=== PATIENT | male | born 1985 | race Two or more races ===

== ENCOUNTER 2017-07-05 20:05 | Emergency (ER) | payer OTHER ==
[2017-07-05 21:35] LABS: ABSOLUTE BASOPHILS # (AUTO) 0.1 10^3/uL (0.0-0.2); ABSOLUTE LYMPHOCYTES (AUTO) 1.7 10^3/uL (0.5-4.7); ABSOLUTE MONOCYTES (AUTO) 1.4 10^3/uL (0.1-1.4); ABSOLUTE NEUT (AUTO) 11.9 10^3/uL (1.7-8.2); BASOPHILS % (AUTO) 0.6 % (0-2); HEMATOCRIT 44.6 % (37.9-51.0); HEMOGLOBIN 15.3 g/dL (13.5-17.0); HGB HCT DIFFERENCE 1.3; LYMPHOCYTES % (AUTO) 11.2 % (13-45); MEAN CORPUSCULAR HEMOGLOBIN 30.5 pg (27.0-33.4); MEAN CORPUSCULAR HGB CONC 34.4 g/dL (32.0-36.0); MEAN CORPUSCULAR VOLUME 89 fl (80-97); MONOCYTES % (AUTO) 9.1 % (3-13); RED BLOOD COUNT 5.04 10^6/uL (4.35-5.55); SEGMENTED NEUTROPHILS % (AUTO) 79.1 % (42-78); WHITE BLOOD COUNT 15.1 10^3/uL (4.0-10.5)
--- NOTE | 2017-07-05 21:49 | RADIOLOGY REPORT (SQ) ---
EXAM DESCRIPTION: CHEST PA/LAT COMPLETED DATE/TIME: 07/05/2017 9:41 pm REASON FOR STUDY: SOB COMPARISON: None. TECHNIQUE: Frontal and lateral radiographic views of the chest acquired. NUMBER OF VIEWS: Two view. LIMITATIONS: None. FINDINGS: LUNGS AND PLEURA: No opacities, masses or pneumothorax. No pleural effusion. MEDIASTINUM AND HILAR STRUCTURES: No masses or contour abnormalities. HEART AND VASCULAR STRUCTURES: Heart normal size. No evidence for failure. BONES: No acute findings. HARDWARE: None in the chest. OTHER: No other significant finding. IMPRESSION: NO SIGNIFICANT RADIOGRAPHIC FINDING IN THE CHEST. TECHNICAL DOCUMENTATION: JOB ID: [id number] [facility] [employer]- All Rights Reserved
[2017-07-05 21:51] LABS: ALANINE AMINOTRANSFERASE 45 U/L (21-72); ALKALINE PHOSPHATASE 78 U/L (38-126); ANION GAP 16 (5-19); ASPARTATE AMINO TRANSFERASE 31 U/L (17-59); BILIRUBIN,DIRECT 0.3 mg/dL (0.0-0.4); BILIRUBIN,TOTAL 0.6 mg/dL (0.2-1.3); BLOOD UREA NITROGEN 22 mg/dL (7-20); CALCIUM 11.2 mg/dL (8.4-10.2); CARBON DIOXIDE 27 mmol/L (22-30); CHLORIDE 102 mmol/L (98-107); CREATININE RESULT 1.47 mg/dL (0.52-1.25); GLUCOSE 100 mg/dL (75-110); POTASSIUM 4.4 mmol/L (3.6-5.0); SODIUM 144.9 mmol/L (137-145); TOTAL PROTEIN 8.2 g/dL (6.3-8.2)
[2017-07-05 22:34] LABS: ADD ON TESTING BLD IN LAB ACKNOWLEDGE
[2017-07-05 22:42] LABS: CREATINE KINASE 294 U/L (55-170)
[2017-07-05] MEDS ORDERED: KETOROLAC TROMETHAMINE INJ/PF 30 MG/1 ML SDV IV ONE (22:47)
[2017-07-05] MEDS ORDERED: NORMAL SALINE 1000 ML 1,000 ML IV ONE (22:47)
[2017-07-05] MEDS ORDERED: DIPHENHYDRAMINE HCL 50 MG/ML VIAL IV ONE (22:47)
[2017-07-05] MEDS ORDERED: PROCHLORPERAZINE EDISYLATE INJ 10 MG/2 ML VIAL IM ONE (22:48)
--- NOTE | 2017-07-05 22:48 | ER Document Report ---
ED Respiratory Problem - General Mode of Arrival: Ambulatory Information source: Patient TRAVEL OUTSIDE OF THE [place] IN LAST 30 DAYS: No <SHER DIOR - Last Filed: 07/05/17 22:58> <JUNIOR KEE - Last Filed: 07/06/17 02:54> - General Chief Complaint: Shortness Of Breath Stated Complaint: SHORTNESS OF BREATH Time Seen by Provider: 07/05/17 22:15 Notes: Patient is a 31 year old male that presents to the emergency department today with complaints of shortness of breath. Patient states two days ago he began having a migraine headache. Patient has a history of migraine headaches which he states he gets "rarely". Patient states this migraine was particularly bad and it lingered yesterday so he stayed in bed all day. Patient states today his headache dissipated so he decided to play in his soccer games this afternoon. Patient states he was fine while playing soccer and he had no headache. Patient states on his way home he began experiencing "tunnel vision" with associated shortness of breath. Patient states he stopped at a gas station and called 911. Patient states that EMS "checked him out" and he vomited shortly after their arrival which made him feel much better so he elected to refuse transport at that time. Patient states his shortness of breath began again this evening. Patient states he has felt generally weak with this shortness of breath but he no longer has a headache. Patient denies any vision changes. (SHER DIOR) Past Medical History - General Information source: Patient - Social History Smoking Status: Never Smoker Cigarette use (# per day): No Frequency of alcohol use: None Drug Abuse: None Lives with: Family Family History: Reviewed & Not Pertinent Patient has suicidal ideation: No Patient has homicidal ideation: No Neurological Medical History: Reports: Hx Migraine Past Surgical History: Reports: Hx Appendectomy, Hx Herniorrhaphy <SHER DIOR - Last Filed: 07/05/17 22:58> Review of Systems - Review of Systems Constitutional: See HPI, Weakness EENT: denies: Blurred vision, Double vision Cardiovascular: No symptoms reported Respiratory: See HPI, Short of breath Gastrointestinal: No symptoms reported Genitourinary: No symptoms reported Male Genitourinary: No symptoms reported Musculoskeletal: No symptoms reported Skin: No symptoms reported Hematologic/Lymphatic: No symptoms reported Neurological/Psychological: denies: Headaches -: Yes All other systems reviewed and negative <SHER DIOR - Last Filed: 07/05/17 22:58> Physical Exam <SHER DIOR - Last Filed: 07/05/17 22:58> <JUNIOR KEE - Last Filed: 07/06/17 02:54> - Vital signs Vitals: Temp Pulse Resp BP Pulse Ox 97.9 F 70 16 119/82 100 07/05/17 20:08 07/05/17 20:08 07/05/17 20:08 07/05/17 20:08 07/05/17 20:08 - Notes Notes: Physical Exam: General: Alert, appears well. HEENT: Normocephalic. Atraumatic. PERRL. Extraocular movements intact. Oropharynx clear. No carotid bruits. Neck: Supple. Non-tender. Respiratory: No respiratory distress. Clear and equal breath sounds bilaterally. Cardiovascular: Regular rate and rhythm. Abdominal: Normal Inspection. Non-tender. No distension. Normal Bowel Sounds. Back: Non-tender. No deformity or step off. Extremities: Moves all four extremities. Upper extremities: Normal inspection. Normal ROM. Lower extremities: Normal inspection. No edema. Normal ROM. Neurological: Normal cognition. AAOx4. Normal speech. Psychological: Normal affect. Normal Mood. Skin: Warm. Dry. Normal color. (SHER DIOR) Course - Laboratory Result Diagrams: 07/05/17 21:17 07/05/17 21:17 <SHER DIOR - Last Filed: 07/05/17 22:58> - Laboratory Result Diagrams: 07/05/17 21:17 07/05/17 21:17 <JUNIOR KEE - Last Filed: 07/06/17 02:54> - Re-evaluation Re-evalutation: 07/06/17 02:52 After 2 L IV fluids and medication, the patient states he feels way better. He has also been sleeping for a while. Lab work confirms my initial suspicions that he had Probably gotten dehydrated from inadequate fluid intake in the 2 previous days and then going out and playing to soccer games today. (JUNIOR KEE) - Vital Signs Vital signs: Temp Pulse Resp BP Pulse Ox 97.9 F 70 13 101/65 99 07/05/17 20:08 07/05/17 20:08 07/06/17 02:31 07/06/17 02:31 07/06/17 02:31 - Laboratory Laboratory results interpreted by me: 07/05/17 07/05/17 07/05/17 21:17 21:17 21:17 WBC 15.1 H Seg Neutrophils % 79.1 H Lymphocytes % 11.2 L Absolute Neutrophils 11.9 H BUN 22 H Creatinine 1.47 H Est GFR (Non-Af Amer) 55 L Calcium 11.2 H Creatine Kinase 294 H Urine Protein Urine Blood Urine Urobilinogen 07/05/17 23:50 WBC Seg Neutrophils % Lymphocytes % Absolute Neutrophils BUN Creatinine Est GFR (Non-Af Amer) Calcium Creatine Kinase Urine Protein 30 H Urine Blood MODERATE H Urine Urobilinogen 2.0 H Discharge <SHER DIOR - Last Filed: 07/05/17 22:58> <JUNIOR KEE - Last Filed: 07/06/17 02:54> - Discharge Clinical Impression: Dehydration, Light-headed feeling Dyspnea Qualifiers: Dyspnea type: shortness of breath Qualified Code(s): R06.02 - Shortness of breath Condition: Stable Disposition: HOME, SELF-CARE Additional Instructions: Dehydration Dehydration can result from vomiting or diarrhea, fever, or decreased intake of fluids. If severe, hospitalization and intravenous fluids may be required. Most cases are treated at home with fluids by mouth. For the next 24 hours, drink lots of clear fluids. In mild cases, this can be soda pop or sports drinks. Try to get three liters (3 quarts) of fluid per day. If vomiting occurs, continue to drink the fluids frequently (every 15 to 20 minutes), but in small amounts (one or two ounces). Depending on the type of dehydration, the doctor may prescribe antinausea medicine or potassium replacements. Call the doctor or return for re-examination if you become progressively weak, vomit repeatedly, or have other new symptoms. YOUR SYMPTOMS ARE MOST LIKELY DUE TO BECOMING DEHYDRATED TODAY. YOU SHOULD DRINK PLENTY OF FLUIDS TONIGHT AND TOMORROW. GET PLENTY OF REST. FOLLOW UP WITH YOUR DOCTOR IF NOT IMPROVING. RETURN TO THE EMERGENCY ROOM IF ANY NEW OR WORSENING SYMPTOMS. Scribe Attestation: 07/05/17 23:10 I personally performed the services described in the documentation, reviewed and edited the documentation which was dictated to the scribe in my presence, and it accurately records my words and actions. (JUNIOR KEE) Scribe Documentation - Scribe Written by Alexander:: Alexander Costa, 07/05/2017 2307 acting as scribe for :: Roscoe <SHER DIOR - Last Filed: 07/05/17 22:58>
[2017-07-06 00:58] LABS: APPEARANCE,URINE SLIGHTLY-CLOUDY; BILIRUBIN,URINE NEGATIVE (NEGATIVE); GLUCOSE, URINE NEGATIVE (NEGATIVE); KETONES,URINE NEGATIVE (NEGATIVE); LEUKOCYTE ESTERASE,URINE NEGATIVE (NEGATIVE); NITRITE,URINE NEGATIVE (NEGATIVE); PROTEIN,URINE 30 mg/dL (NEGATIVE); URINE SPECIFIC GRAVITY 1.031
[2017-07-06] MEDS ORDERED: NORMAL SALINE 1000 ML 1,000 ML IV ONE (01:19)
[2017-07-06 03:04] VITALS: BP 114/78
== END 2017-07-06 03:04 | disposition home or self-care (01) ==
LOC: ER 20:05
DX: E86.0 Dehydration (principal); R06.02 Shortness of breath; R42 Dizziness and giddiness; R53.1 Weakness
CPT/HCPCS: 99285; 96372; 96361; 96374; 96375; 36415; 82550; 85025; 80053; 81001; 85379; 71020; J1200; J1885; J0780; J7030 ×2

== ENCOUNTER 2018-01-20 22:25 | Emergency (ER) | payer OTHER ==
[2018-01-20] MEDS ORDERED: ONDANSETRON HCL INJ/PF 4 MG/2 ML SDV IV ONE (23:10)
--- NOTE | 2018-01-20 23:13 | ER Document Report ---
ED General - General Chief Complaint: Vomiting Stated Complaint: VOMITING Time Seen by Provider: 01/20/18 23:00 TRAVEL OUTSIDE OF THE [place] IN LAST 30 DAYS: No - HPI Notes: Patient is a 32-year-old male no significant past medical history who presents to the ED complaining of 1.5 hours of nausea/vomiting. Patient states that he went to [employer] and 8 what he usually would eat, a couple wings and a drink. Patient states that he began feeling nauseous when he got home so he took a shower and try taking a nap. Patient states that he woke up more nauseated and then he started throwing up and having dry heaves for the next 45 minutes to an hour. Patient states that he does not have any associated pain. He denies any drug allergies, smoking, IV drug use. Patient reports having one episode of feeling short of breath after he was done vomiting. Denies any other prolonged immobilization, hormone use, previous DVT/PE, recent surgery/ trauma. Patient states that he does continue to feel nauseated. No other concerns or complaints at this time. Denies any headache, fever, neck pain, URI , sore throat, chest pain, palpitations, syncope, cough, shortness of breath, wheeze, dyspnea, abdominal pain, diarrhea, urinary retention, dysuria, hematuria , back pain, loss of control of bowel or bladder, numbness/tingling, saddle anesthesia, muscle paralysis/weakness, or rash. Past Medical History - Social History Smoking Status: Never Smoker Chew tobacco use (# tins/day): Yes Frequency of alcohol use: Social Drug Abuse: None Family History: Reviewed & Not Pertinent Patient has suicidal ideation: No Patient has homicidal ideation: No Neurological Medical History: Reports: Hx Migraine Renal/ Medical History: Denies: Hx Peritoneal Dialysis Past Surgical History: Reports: Hx Appendectomy, Hx Herniorrhaphy Review of Systems - Review of Systems -: Yes All other systems reviewed and negative Physical Exam - Vital signs Vitals: Temp Pulse Resp BP Pulse Ox 98.4 F 80 16 145/82 H 100 01/20/18 22:37 01/20/18 22:37 01/20/18 22:37 01/20/18 22:37 01/20/18 22:37 - Notes Notes: PHYSICAL EXAMINATION: GENERAL: Well-appearing, well-nourished and in no acute distress. A&Ox4. Answers questions appropriately HEAD: Atraumatic, normocephalic. EYES: Pupils equal round and reactive to light, extraocular movements intact, sclera anicteric, conjunctiva are normal. ENT: Nares patent and without discharge. oropharynx clear without exudates. No tonsilar hypertrophy or erythema. Moist mucous membranes. NECK: Normal range of motion, supple without lymphadenopathy LUNGS: Breath sounds clear to auscultation bilaterally and equal. No wheezes rales or rhonchi. HEART: Regular rate and rhythm without murmurs, rubs, gallops. ABDOMEN: Soft, nontender, nondistended abdomen. No guarding, no rebound. No masses appreciated. Normal bowel sounds present. No CVA tenderness bilaterally. Musculoskeletal: FROM to passive/active. Strength 5+/5. Edward neg b/l. Extremities: No cyanosis, clubbing, or edema b/l. Peripheral pulses 2+. Capillary refill less than 3 seconds. NEUROLOGICAL: Normal speech, normal gait. Normal sensory, motor exams PSYCH: Normal mood, normal affect. SKIN: Warm, Dry, normal turgor, no rashes or lesions noted. Course - Re-evaluation Re-evalutation: 01/21/18 00:54 Patient is an afebrile, well-hydrated, 32-year-old male who presents to the ED with nausea and vomiting, since resolved, suspect food vs viral. Vitals are acceptable. PE is otherwise unremarkable. CBC, CMP, lipase were unremarkable for any acute pathology. Patient has not had any vomiting since he arrived to the emergency department. Patient has no complaints of pain. His abdomen is soft and nontender. Patient is tolerating p.o. without any difficulties. He has not had any tachycardia, tachypnea, or hypoxia. Low suspicion/risk for acute appendicitis, bowel obstruction, acute cholecystitis, perforated diverticulitis, incarcerated hernia, pancreatitis, perforated ulcer, peritonitis , sepsis, or other systemic emergent condition at this time. Patient is aware that his condition can change from initial presentation and he needs to monitor symptoms closely and seek medical attention if any acute changes. I will send him home with a prescription for Zofran. Conservative measures otherwise for symptoms. Recheck with PCM in 3-5 days. Consider consult with a process improvement analyst. Return to the ED with any worsening/concerning symptoms otherwise as reviewed in discharge. Patient is in agreement. - Vital Signs Vital signs: Temp Pulse Resp BP Pulse Ox 98.4 F 80 16 145/82 H 100 01/20/18 22:37 01/20/18 22:37 01/20/18 22:37 01/20/18 22:37 01/20/18 22:37 - Laboratory Result Diagrams: 01/20/18 23:00 01/20/18 23:55 Laboratory results interpreted by me: 01/20/18 23:55 Carbon Dioxide 31 H Glucose 111 H Discharge - Discharge Clinical Impression: Nausea and vomiting Qualifiers: Vomiting type: unspecified Vomiting Intractability: non-intractable Qualified Code(s): R11.2 - Nausea with vomiting, unspecified Condition: Stable Disposition: HOME, SELF-CARE Instructions: Antinausea Medication ([facility]), Vomiting ([facility]) Additional Instructions: Maintain adequate fluid and food intake [place] diet ([employer] Bananas, rice, apples, toast, etc Zofran as needed tylenol if needed Monitor for any worsening symptoms Make sure you are staying hydrated enough to urinate and have normal BM's Recheck with your PCM in 3-5 days Consider consult with Gastroenterology for ongoing/worsening symptoms Return to the ED with any worsening symptoms and/or development of fever, headache, chest pain, palpitations, syncope, shortness of breath, trouble breathing, abdominal pain, n/v/d, blood in stool/urine, weakness, or other worsening symptoms that are concerning to you. Prescriptions: Ondansetron [Zofran Odt 4 mg Tablet] 1 - 2 tab PO Q4H PRN #15 tab.rapdis PRN Reason: For Nausea/Vomiting Forms: Elevated Blood Pressure Referrals: ONIEL BELTRÁN MD [ACTIVE STAFF] - Follow up as needed [facility] [Other] - Follow up in 3-5 days
[2018-01-20] MEDS: NORMAL SALINE 1000 ML 1,000 ML IV PRN ×2 (23:15→23:16)
[2018-01-20 23:18] LABS: ABSOLUTE BASOPHILS # (AUTO) 0.1 10^3/uL (0.0-0.2); ABSOLUTE EOSINOPHILS # (AUTO) 0.1 10^3/uL (0.0-0.6); ABSOLUTE MONOCYTES (AUTO) 0.7 10^3/uL (0.1-1.4); ABSOLUTE NEUT (AUTO) 5.2 10^3/uL (1.7-8.2); BASOPHILS % (AUTO) 0.9 % (0-2); EOSINOPHILS % (AUTO) 1.5 % (0-6); HEMATOCRIT 41.9 % (37.9-51.0); HEMOGLOBIN 14.2 g/dL (13.5-17.0); LYMPHOCYTES % (AUTO) 24.6 % (13-45); MEAN CORPUSCULAR HEMOGLOBIN 30.1 pg (27.0-33.4); MEAN CORPUSCULAR HGB CONC 33.9 g/dL (32.0-36.0); MEAN CORPUSCULAR VOLUME 89 fl (80-97); MONOCYTES % (AUTO) 8.8 % (3-13); PLATELET COUNT 246 10^3/uL (150-450); RED BLOOD COUNT 4.72 10^6/uL (4.35-5.55); RED CELL DISTRIBUTION WIDTH 12.8 % (11.5-14.0); SEGMENTED NEUTROPHILS % (AUTO) 64.2 % (42-78); TOTAL CELLS COUNTED % (AUTO) 100 %; WHITE BLOOD COUNT 8.2 10^3/uL (4.0-10.5)
[2018-01-21 00:43] LABS: ALANINE AMINOTRANSFERASE 36 U/L (21-72); ALBUMIN 3.8 g/dL (3.5-5.0); ALKALINE PHOSPHATASE 61 U/L (38-126); ANION GAP 8 (5-19); ASPARTATE AMINO TRANSFERASE 24 U/L (17-59); BILIRUBIN,DIRECT 0.2 mg/dL (0.0-0.4); BILIRUBIN,TOTAL 0.2 mg/dL (0.2-1.3); BLOOD UREA NITROGEN 19 mg/dL (7-20); CALCIUM 9.3 mg/dL (8.4-10.2); CARBON DIOXIDE 31 mmol/L (22-30); CHLORIDE 102 mmol/L (98-107); GLUCOSE 111 mg/dL (75-110); LIPASE 39.4 U/L (23-300); POTASSIUM 4.1 mmol/L (3.6-5.0); SODIUM 140.5 mmol/L (137-145); TOTAL PROTEIN 6.5 g/dL (6.3-8.2)
[2018-01-21] MEDS ORDERED: ONDANSETRON ODT 4 MG TAB (6 TAB/ER DISP) PO PRN (00:57)
[2018-01-21 01:09] VITALS: BP 130/90
== END 2018-01-21 01:10 | disposition home or self-care (01) ==
LOC: ER 22:25
DX: R11.2 Nausea with vomiting, unspecified (principal); R06.02 Shortness of breath; Z72.0 Tobacco use
CPT/HCPCS: 99284; 96361; 96374; 36415; 83690; 85025; 80053; J2405; J7030